=== PATIENT | female | born 1980 | race Caucasian/White ===

== ENCOUNTER → 2016-10-13 | Outpatient (CLI) | payer BC | LOC: LAB 10:30 | PROVIDERS: ATTEND Advanced Practice Midwife | DX: Z36 Encounter for antenatal screening of mother (principal) | CPT/HCPCS: 36415; 82105; 87086; 87088; 87186 ==

== ENCOUNTER → 2017-01-05 | Outpatient (CLI) | payer BC | LOC: LAB 16:22 | PROVIDERS: ATTEND Obstetrics & Gynecology | DX: Z11.59 Encounter for screening for other viral diseases (principal); Z11.4 Encounter for screening for human immunodeficiency virus [HIV] | CPT/HCPCS: 36415; 86592 ==

== ENCOUNTER 2017-01-29 06:32 | Emergency (ER) | payer BC ==
[2017-01-29] MEDS ORDERED: NORMAL SALINE 1000 ML 1,000 ML IV ONE (06:57)
--- NOTE | 2017-01-29 06:59 | ER Document Report ---
ED General - General Chief Complaint: Shortness Of Breath Stated Complaint: SHORTNESS OF BREATH Mode of Arrival: Ambulatory Information source: Patient Notes: 36-year-old female who is 32 weeks presents with complaints of shortness of breath. Patient notes shortness of breath started overnight, worsened with lying flat. Patient notes when she sits up shortness of breath improves but she still feels she cannot take a deep breath. No previous similar episodes Patient is on daily aspirin for history of preeclampsia TRAVEL OUTSIDE OF THE [place] IN LAST 30 DAYS: No - HPI Onset: Just prior to arrival Onset/Duration: Sudden Quality of pain: Sharp Severity: Mild Pain Level: 1 Associated symptoms: Chest pain, Shortness of breath Exacerbated by: Supine Relieved by: Sitting, Standing Similar symptoms previously: No Recently seen / treated by doctor: No - Related Data Allergies/Adverse Reactions: hydrochlorothiazide [Hydrochlorothiazide] Allergy (Severe, Verified 05/03/15 09: 31) CROSS REACTION TO SULFA Sulfa (Sulfonamide Antibiotics) Allergy (Severe, Verified 05/03/15 09:31) PROJECTILE VOMITING Home Medications: Current Home Medications Aspirin [Ecotrin] 81 mg PO DAILY 01/29/17 [History] Glyburide [Diabeta 2.5 mg Tablet] 2.5 mg PO DAILY 01/29/17 [History] Metformin HCl [Glucophage] 500 mg PO BID 01/29/17 [History] Past Medical History - Social History Smoking Status: Never Smoker Cigarette use (# per day): No Chew tobacco use (# tins/day): No Smoking Education Provided: No Family History: Reviewed & Not Pertinent Renal/ Medical History: Denies: Hx Ovarian Cysts, Hx Peritoneal Dialysis, Hx Pelvic Inflammatory Disease Malignancy Medical History: Denies: Hx Breast Cancer, Hx Cervical Cancer, Hx Ovarian Cancer GI Medical History: Reports: Hx Gastroesophageal Reflux Disease - rolaids . Denies: Hx Hiatal Hernia, Hx Ulcer Infectious Medical History: Denies: Hx HIV Review of Systems - Review of Systems Notes: REVIEW OF SYSTEMS: CONSTITUTIONAL : Denies fever, chills, or sweats. Denies recent illness. EENT: Denies eye, ear, throat, or mouth pain or symptoms. Denies nasal or sinus congestion or discharge. Denies throat, tongue, or mouth swelling or difficulty swallowing. CARDIOVASCULAR: Admits to chest pain RESPIRATORY: Admits shortness of breath GASTROINTESTINAL: Denies abdominal pain or distention. Denies nausea, vomiting , or diarrhea. Denies blood in vomitus, stools, or per rectum. Denies black, tarry stools. Denies constipation. GENITOURINARY: Denies difficulty urinating, painful urination, burning, frequency, blood in urine, or discharge. FEMALE GENITOURINARY: Denies vaginal bleeding, heavy or abnormal periods, irregular periods. Denies vaginal discharge or odor. MUSCULOSKELETAL: Denies back or neck pain or stiffness. Denies joint pain or swelling. SKIN: Denies rash, lesions or sores. HEMATOLOGIC : Denies easy bruising or bleeding. LYMPHATIC: Denies swollen, enlarged glands. NEUROLOGICAL: Denies confusion or altered mental status. Denies passing out or loss of consciousness. Denies dizziness or lightheadedness. Denies headache. Denies weakness or paralysis or loss of use of either side. Denies problems with gait or speech. Denies sensory loss, numbness, or tingling. Denies seizures. PSYCHIATRIC: Denies anxiety or stress. Denies depression, suicidal ideation, or homicidal ideation. ALL OTHER SYSTEMS REVIEWED AND NEGATIVE. Dictation was performed using [employer] voice recognition software PHYSICAL EXAMINATION: GENERAL: Well-appearing, well-nourished and in no acute distress. HEAD: Atraumatic, normocephalic. EYES: Pupils equal round and reactive to light, extraocular movements intact, conjunctiva are normal. ENT: Nares patent, oropharynx clear without exudates. Moist mucous membranes. NECK: Normal range of motion, supple without lymphadenopathy LUNGS: Breath sounds clear to auscultation bilaterally and equal. No wheezes rales or rhonchi. HEART: Regular rate and rhythm without murmurs ABDOMEN: Soft, gravid abdomen Female : deferred Musculoskeletal: Normal range of motion, no pitting or edema. No cyanosis. NEUROLOGICAL: Cranial nerves grossly intact. Normal speech, normal gait. Normal sensory, motor exams PSYCH: Normal mood, normal affect. SKIN: Warm, Dry, normal turgor, no rashes or lesions noted. Physical Exam - Vital signs Vitals: Temp Pulse Resp BP Pulse Ox 97.5 F 95 17 128/81 H 98 01/29/17 06:36 01/29/17 06:36 01/29/17 06:36 01/29/17 06:36 01/29/17 06:36 Course - Re-evaluation Re-evalutation: 01/29/17 06:59 Patient will be sent for CT of her chest to rule out a pulmonary emboli otherwise she looks well vital signs are stable patient is in no distress no signs of preeclampsia seen at this time 01/29/17 09:22 Cta non diagnostic for pe, no effusion noted. pt will be sent for VQ scan 01/29/17 10:07 VQ scan was negative, I do not start any life-threatening issues, patient was given fluids and is otherwise stable for discharge I believe her shortness breath may be secondary to the After performing a Medical Screening Examination, I estimate there is LOW risk for ACUTE CORONARY SYNDROME, RESPIRATORY FAILURE, SEPSIS OR MENINGITIS, thus I consider the discharge disposition reasonable. I have reevaluated this patient multiple times and no significant life threatening changes are noted. The patient and I have discussed the diagnosis and risks, and we agree with discharging home with close follow-up. We also discussed returning to the Emergency Department immediately if new or worsening symptoms occur. We have discussed the symptoms which are most concerning (e.g., changing or worsening pain, trouble swallowing or breathing, neck stiffness, fever) that necessitate immediate return. - Vital Signs Vital signs: Temp Pulse Resp BP Pulse Ox 97.6 F 85 16 128/87 H 97 01/29/17 09:46 01/29/17 09:46 01/29/17 09:46 01/29/17 09:46 01/29/17 09:46 - Laboratory Result Diagrams: 01/29/17 07:05 01/29/17 07:05 Laboratory results interpreted by me: 01/29/17 01/29/17 07:05 07:05 RBC 3.57 L Hgb 11.4 L Hct 32.8 L Total Protein 6.0 L - Diagnostic Test Radiology reviewed: Image reviewed, Reports reviewed - No acute abnormality Discharge - Discharge Clinical Impression: Shortness of breath Qualifiers: Weeks of gestation: 32 weeks Qualified Code(s): Z3A.32 - 32 weeks gestation of Condition: Stable Disposition: HOME, SELF-CARE Instructions: Dyspnea, Nonspecific ([facility]) Additional Instructions: Follow up with your physician tomorrow for further care or return to the ED IMMEDIATELY if symptoms worsen or new concerns occur. If you cannot afford to follow up with your primary care physician a list of low cost clinics have been provided at the end of your discharge papers as well.
[2017-01-29 07:22] LABS: ABSOLUTE EOSINOPHILS # (AUTO) 0.1 10^3/uL (0.0-0.6); ABSOLUTE LYMPHOCYTES (AUTO) 1.3 10^3/uL (0.5-4.7); ABSOLUTE MONOCYTES (AUTO) 0.5 10^3/uL (0.1-1.4); ABSOLUTE NEUT (AUTO) 6.3 10^3/uL (1.7-8.2); BASOPHILS % (AUTO) 0.4 % (0-2); EOSINOPHILS % (AUTO) 1.2 % (0-6); HEMATOCRIT 32.8 % (36.0-47.0); HEMOGLOBIN 11.4 g/dL (12.0-15.5); HGB HCT DIFFERENCE 1.4; MEAN CORPUSCULAR HEMOGLOBIN 31.8 pg (27.0-33.4); MEAN CORPUSCULAR HGB CONC 34.6 g/dL (32.0-36.0); MEAN CORPUSCULAR VOLUME 92 fl (80-97); RED BLOOD COUNT 3.57 10^6/uL (3.72-5.28); RED CELL DISTRIBUTION WIDTH 13.2 % (11.5-14.0); SEGMENTED NEUTROPHILS % (AUTO) 76.4 % (42-78); WHITE BLOOD COUNT 8.3 10^3/uL (4.0-10.5)
[2017-01-29 07:41] LABS: ALANINE AMINOTRANSFERASE 40 U/L (9-52); ALBUMIN 3.6 g/dL (3.5-5.0); ALKALINE PHOSPHATASE 85 U/L (38-126); ANION GAP 10 (5-19); ASPARTATE AMINO TRANSFERASE 28 U/L (14-36); BILIRUBIN,DIRECT 0.1 mg/dL (0.0-0.4); BILIRUBIN,TOTAL 0.2 mg/dL (0.2-1.3); BLOOD UREA NITROGEN 14 mg/dL (7-20); CALCIUM 9.6 mg/dL (8.4-10.2); CARBON DIOXIDE 23 mmol/L (22-30); CHLORIDE 107 mmol/L (98-107); CREATININE RESULT 0.61 mg/dL (0.52-1.25); GLUCOSE 106 mg/dL (75-110); POTASSIUM 4.2 mmol/L (3.6-5.0); SODIUM 139.8 mmol/L (137-145)
[2017-01-29 08:54] LABS: APPEARANCE,URINE CLEAR; BILIRUBIN,URINE NEGATIVE (NEGATIVE); GLUCOSE, URINE NEGATIVE (NEGATIVE); KETONES,URINE NEGATIVE (NEGATIVE); LEUKOCYTE ESTERASE,URINE NEGATIVE (NEGATIVE); NITRITE,URINE NEGATIVE (NEGATIVE); PROTEIN,URINE NEGATIVE (NEGATIVE); URINE SPECIFIC GRAVITY 1.008; UROBILINOGEN,URINE NEGATIVE mg/dL (<2.0)
[2017-01-29 09:47] VITALS: BP 128/87
--- NOTE | 2017-01-29 21:57 | EKG REPORT ---
SEVERITY:- ABNORMAL ECG - SINUS RHYTHM LEFT VENTRICULAR HYPERTROPHY : Confirmed by: Joanna Ware MD 29-Jan-2017 21:55:58
== END 2017-01-29 10:16 | disposition home or self-care (01) ==
LOC: ER 06:32
DX: O26.93 Pregnancy related conditions, unspecified, third trimester (principal); R06.02 Shortness of breath; Z3A.32 32 weeks gestation of pregnancy; Z88.2 Allergy status to sulfonamides; Z79.82 Long term (current) use of aspirin
CPT/HCPCS: 93005; 99285; 96360; 36415; 85025; 80053; 81001; 78580; 71275; 93010; A9540; J7030; Q9969

== ENCOUNTER → 2017-02-18 | Outpatient (CLI) | payer BC ==
[2017-02-18 10:00] LABS: HEMATOCRIT 34.9 % (36.0-47.0); HEMOGLOBIN 11.6 g/dL (12.0-15.5); HGB HCT DIFFERENCE -0.1; MEAN CORPUSCULAR HEMOGLOBIN 30.9 pg (27.0-33.4); MEAN CORPUSCULAR HGB CONC 33.3 g/dL (32.0-36.0); MEAN CORPUSCULAR VOLUME 93 fl (80-97); RED BLOOD COUNT 3.77 10^6/uL (3.72-5.28); RED CELL DISTRIBUTION WIDTH 13.5 % (11.5-14.0); WHITE BLOOD COUNT 7.5 10^3/uL (4.0-10.5)
[2017-02-18 10:03] LABS: URINE PROTEIN 15.5 mg/dL (<12)
[2017-02-18 10:28] LABS: ALANINE AMINOTRANSFERASE 28 U/L (9-52); ALBUMIN 3.5 g/dL (3.5-5.0); ALKALINE PHOSPHATASE 90 U/L (38-126); ANION GAP 11 (5-19); ASPARTATE AMINO TRANSFERASE 19 U/L (14-36); BILIRUBIN,DIRECT 0.2 mg/dL (0.0-0.4); BILIRUBIN,TOTAL 0.3 mg/dL (0.2-1.3); BLOOD UREA NITROGEN 11 mg/dL (7-20); CALCIUM 9.6 mg/dL (8.4-10.2); CARBON DIOXIDE 22 mmol/L (22-30); CHLORIDE 105 mmol/L (98-107); GLUCOSE 91 mg/dL (75-110); LDH 421 U/L (313-618); POTASSIUM 4.5 mmol/L (3.6-5.0); SODIUM 138.3 mmol/L (137-145); TOTAL PROTEIN 5.9 g/dL (6.3-8.2); URIC ACID 5.9 mg/dL (2.5-7.0)
== END ==
LOC: LAB 09:33
PROVIDERS: ATTEND Midwife
DX: O13.9 Gestational [pregnancy-induced] hypertension without significant proteinuria, unspecified trimester (principal)
CPT/HCPCS: 36415; 80053; 83615; 84156; 84550; 85027

== ENCOUNTER → 2017-03-01 | Outpatient (CLI) | payer BC ==
[2017-03-01 09:37] LABS: HEMOGLOBIN 11.6 g/dL (12.0-15.5); HGB HCT DIFFERENCE -0.2; MEAN CORPUSCULAR HEMOGLOBIN 30.4 pg (27.0-33.4); MEAN CORPUSCULAR VOLUME 92 fl (80-97); RED CELL DISTRIBUTION WIDTH 13.1 % (11.5-14.0)
[2017-03-01 09:45] LABS: ASPARTATE AMINO TRANSFERASE 18 U/L (14-36); CREATININE RESULT 0.67 mg/dL (0.52-1.25); LDH 464 U/L (313-618); URIC ACID 6.6 mg/dL (2.5-7.0)
== END ==
LOC: LAB 09:15
PROVIDERS: ATTEND Registered Nurse Women's Health Care, Ambulatory
DX: O14.90 Unspecified pre-eclampsia, unspecified trimester (principal)
CPT/HCPCS: 36415; 82565; 83615; 84450; 84550; 85027

== ENCOUNTER 2017-03-10 05:24 | Inpatient (IN) | payer BC ==
[2017-03-09 13:01] LABS: ABSOLUTE EOSINOPHILS # (AUTO) 0.1 10^3/uL (0.0-0.6); ABSOLUTE LYMPHOCYTES (AUTO) 1.5 10^3/uL (0.5-4.7); ABSOLUTE MONOCYTES (AUTO) 0.5 10^3/uL (0.1-1.4); ABSOLUTE NEUT (AUTO) 5.5 10^3/uL (1.7-8.2); BASOPHILS % (AUTO) 0.4 % (0-2); EOSINOPHILS % (AUTO) 1.1 % (0-6); HEMATOCRIT 36.9 % (36.0-47.0); HEMOGLOBIN 12.4 g/dL (12.0-15.5); HGB HCT DIFFERENCE 0.3; LYMPHOCYTES % (AUTO) 19.5 % (13-45); MEAN CORPUSCULAR HGB CONC 33.6 g/dL (32.0-36.0); MEAN CORPUSCULAR VOLUME 92 fl (80-97); MONOCYTES % (AUTO) 6.1 % (3-13); RED CELL DISTRIBUTION WIDTH 13.4 % (11.5-14.0); SEGMENTED NEUTROPHILS % (AUTO) 72.9 % (42-78); WHITE BLOOD COUNT 7.6 10^3/uL (4.0-10.5)
[2017-03-09 13:08] LABS: PROTHROMBIN TIME 12.2 SEC (11.4-15.4)
[2017-03-09 13:09] LABS: PARTIAL THROMBOPLASTIN TIME 28.8 SEC (23.5-35.8)
[2017-03-09 13:24] LABS: APPEARANCE,URINE CLEAR; BILIRUBIN,URINE NEGATIVE (NEGATIVE); GLUCOSE, URINE NEGATIVE (NEGATIVE); KETONES,URINE NEGATIVE (NEGATIVE); LEUKOCYTE ESTERASE,URINE NEGATIVE (NEGATIVE); NITRITE,URINE NEGATIVE (NEGATIVE); PROTEIN,URINE NEGATIVE (NEGATIVE); URINE SPECIFIC GRAVITY 1.004; UROBILINOGEN,URINE NEGATIVE mg/dL (<2.0)
[2017-03-09 13:47] LABS: URINE BARBITURATES SCREEN NEGATIVE; URINE METHADONE SCREEN NEGATIVE; URINE OPIATES LOW NEGATIVE; URINE PHENCYCLIDINE SCREEN NEGATIVE
[~2017-03-10 05:24] MED LIST: CEFAZOLIN 1 GM/D5W RTU 1 GM/50 ML RTUPB IV PRN; LIDOCAINE 0.5% INJ-PF (5 MG/ML) 50 ML SDV SUBCUT PRN; RINGERS SOLUTION,LACTATED 2,000 ML IV PRN
[2017-03-10] MEDS: LACTATED RINGERS 1000 ML IV PRN ×2 (06:33→07:11)
[2017-03-10] MEDS ORDERED: ONDANSETRON HCL INJ/PF 4 MG/2 ML SDV IV PRN (07:36)
[2017-03-10] MEDS ORDERED: DIPHENHYDRAMINE HCL 50 MG/ML VIAL IV PRN (07:36)
[2017-03-10] MEDS ORDERED: PROMETHAZINE HCL INJ 25 MG/1 ML VIAL IV PRN ×3 (07:36→11:38)
[2017-03-10] MEDS ORDERED: MEPERIDINE HCL/PF INJ 25 MG/1 ML DISP.SYRIN IV PRN (07:36)
[2017-03-10] MEDS ORDERED: FENTANYL CITRATE INJ/PF 100 MCG/2 ML AMPUL IV PRN ×3 (07:36)
[2017-03-10] MEDS ORDERED: MIDAZOLAM 2 MG/2 ML INJ ONE (08:00)
[2017-03-10] MEDS ORDERED: FENTANYL CITRATE INJ/PF 100 MCG/2 ML AMPUL ONE (08:00)
[2017-03-10] MEDS ORDERED: OXYTOCIN 10 UNIT/ML VIAL ONE (08:00)
[2017-03-10] MEDS ORDERED: PROPOFOL INJ 200 MG/20 ML VIAL IV ONE (08:01)
[2017-03-10] MEDS ORDERED: EPHEDRINE SULFATE INJ 50 MG/1 ML AMPULE ONE (08:01)
[2017-03-10] MEDS ORDERED: ACETAMINOPHEN 100 ML IV ONE (08:01)
[2017-03-10] MEDS ORDERED: CEFAZOLIN INJ 1 GM VIAL ONE (08:27)
[2017-03-10] MEDS ORDERED: ACETAMINOPHEN 325 MG TABLET PO PRN ×2 (11:27→11:38)
[2017-03-10] MEDS ORDERED: OXYTOCIN/NORMAL SALINE 20 UNIT/1,000 ML RTUINJ INJ PRN (11:27)
[2017-03-10] MEDS ORDERED: SIMETHICONE 80 MG TAB.CHEW PO PRN ×2 (11:27→11:38)
[2017-03-10] MEDS ORDERED: PROMETHAZINE HCL INJ 25 MG/1 ML VIAL IM PRN (11:27)
[2017-03-10] MEDS ORDERED: DIPH/PERTUSS(ACELL)/TETANUS VAC/PF 0.5 ML SYR (>=10YO) IM PRN ×2 (11:27→11:38)
[2017-03-10] MEDS ORDERED: MEASLES,MUMPS&RUBELLA VACC/PF 0.5 ML VIAL SUBCUT PRN ×2 (11:27→11:38)
[2017-03-10] MEDS ORDERED: OXYCODONE-ACETAMINOPHEN 5-325 MG TABLET PO PRN ×2 (11:38)
[2017-03-10] MEDS ORDERED: OXYTOCIN/NORMAL SALINE 1,000 ML IV PRN (11:38)
[2017-03-10] MEDS ORDERED: PHENYLEPHRINE HCL INJ/PF 10 MG/1 ML SDV ONE (11:40)
[2017-03-10] MEDS ORDERED: ONDANSETRON HCL INJ/PF 4 MG/2 ML SDV ONE (11:40)
[2017-03-10] MEDS ORDERED: METOCLOPRAMIDE HCL INJ/PF 10 MG/2 ML SDV ONE (11:40)
[2017-03-10] MEDS ORDERED: KETOROLAC TROMETHAMINE 60 MG/2 ML SDV ONE (11:40)
[2017-03-10] MEDS ORDERED: DEXAMETHASONE SOD PHOSPHATE INJ 4 MG/1 ML VIAL ONE (11:40)
[2017-03-10] MEDS ORDERED: (PENDING PHARMACY ID) (Ranitidine Hcl [Zantac 150 Mg Tablet] 1 TAB) PO PRN (12:05)
[2017-03-10] MEDS: HYDROMORPHONE HCL INJ/PF 2 MG/ML AMPULE IV PRN ×2 (12:22→15:17)
[2017-03-10] MEDS: IBUPROFEN 800 MG TABLET PO SCH ×3 (12:36→23:04)
[2017-03-10] MEDS ORDERED: DOCUSATE SODIUM 100 MG CAPSULE PO SCH (18:00)
[2017-03-10] MEDS: DOCUSATE SODIUM 100 MG CAPSULE PO SCH (18:06)
[2017-03-10] MEDS: FAMOTIDINE 20 MG TABLET PO SCH (18:07)
[2017-03-10] MEDS: OXYCODONE-ACETAMINOPHEN 5-325 MG TABLET PO PRN (20:30)
[2017-03-11] MEDS: OXYCODONE-ACETAMINOPHEN 5-325 MG TABLET PO PRN ×4 (02:12→21:41)
[2017-03-11 06:00] LABS: HEMATOCRIT 31.5 % (36.0-47.0); HEMOGLOBIN 10.6 g/dL (12.0-15.5); HGB HCT DIFFERENCE 0.3; MEAN CORPUSCULAR HEMOGLOBIN 31.2 pg (27.0-33.4); MEAN CORPUSCULAR HGB CONC 33.8 g/dL (32.0-36.0); MEAN CORPUSCULAR VOLUME 92 fl (80-97); RED BLOOD COUNT 3.41 10^6/uL (3.72-5.28); RED CELL DISTRIBUTION WIDTH 13.6 % (11.5-14.0); WHITE BLOOD COUNT 12.4 10^3/uL (4.0-10.5)
[2017-03-11] MEDS: IBUPROFEN 800 MG TABLET PO SCH ×3 (06:03→18:37)
[2017-03-11] MEDS: DOCUSATE SODIUM 100 MG CAPSULE PO SCH ×2 (09:29→18:37)
[2017-03-11] MEDS: PRENATAL VITAMIN W-O CA NO5/FE FUMARATE/FA CAPSULE PO SCH ×2 (09:29→11:15)
[2017-03-11] MEDS ORDERED: PRENATAL VITAMIN W-O CA NO5/FE FUMARATE/FA CAPSULE PO SCH (10:00)
[2017-03-11] MEDS ORDERED: [UNRECOGNIZED DRUG - REMARK] PO SCH (10:00)
--- NOTE | 2017-03-11 12:22 | PDOC PROGRESS REPORT ---
Subjective-OB Subjective: Post Delivery Day:1 36 year old s/p repeat delivery and BTL ppd 1. , ambulating, voiding and passing gas without difficulty. Denies any needs at this time Physical Exam (OB) Vital Signs: Temp Pulse Resp BP Pulse Ox 97.9 F 85 15 131/80 H 100 03/11/17 08:44 03/11/17 08:44 03/11/17 08:44 03/11/17 08:44 03/11/17 08:44 Intake & Output 03/10/17 03/11/17 03/12/17 06:59 06:59 06:59 Intake Total 920 Output Total 3500 Balance -2580 Weight 132.5 kg - General General Appearance: Appears well In distress: None - PIH/Pre-Eclampsia DTR's: 1 + Clonus: Negative Headache: Absent Epigastric Pain: No Visual Changes: No - Dressing Removed: Yes - bruised area of skin ~5cm in diameter below incision Incision: Dressing, Well Approximated Closure Type: opsite - scant amount of dried blood present - Bilateral Tubal Ligation Site: Dressing - opsite - Lochia Lochia Amount: Scant < 10 ml Lochia Color: Rubra/Red - Abdomen Description: Soft, Round Hernia Present: No Fundal Description: Firm, Midline Fundal Height: u/u - u/2 - Respiratory Respiratory Status: No respiratory distress - Genitourinary Female External exam: Bruising - as noted - Extremities Upper extremity: Normal inspection Lower extremities: Normal inspection - Psychological Associated symptoms: Normal affect, Normal mood Objective-Diagnostic Laboratory: 03/11/17 05:42 03/11/17 05:42 WBC 12.4 H RBC 3.41 L Hgb 10.6 L Hct 31.5 L MCV 92 MCH 31.2 MCHC 33.8 RDW 13.6 Plt Count 172 Assessment and Plan(PN) - Assessment and Plan (1) Status post repeat low transverse section Is this a current diagnosis for this admission?: YesPlan: continue stay, ambulation (2) Tubal ligation status Is this a current diagnosis for this admission?: YesPlan: continue stay (3) Anemia Qualifiers: Other causes of anemia: other cause, not classified Is this a current diagnosis for this admission?: YesPlan: iron supplementation - Time Spent with Patient Time with patient: 15-25 minutes Medications reviewed and adjusted accordingly: Yes - Disposition Anticipated Discharge: Home Within: within 24 hours
[2017-03-11] MEDS: FAMOTIDINE 20 MG TABLET PO SCH (18:37)
[2017-03-12] MEDS: IBUPROFEN 800 MG TABLET PO SCH ×3 (00:57→11:50)
[2017-03-12] MEDS: DOCUSATE SODIUM 100 MG CAPSULE PO SCH (09:03)
[2017-03-12] MEDS: PRENATAL VITAMIN W-O CA NO5/FE FUMARATE/FA CAPSULE PO SCH ×2 (09:03→09:21)
--- NOTE | 2017-03-12 09:56 | PDOC DISCHARGE SUMMARY ---
Final Diagnosis Discharge Date: 03/12/17 - Final Diagnosis (1) GDM, class A2 Is this a current diagnosis for this admission?: Yes (2) Anemia Is this a current diagnosis for this admission?: Yes (3) Status post repeat low transverse section Is this a current diagnosis for this admission?: Yes (4) Tubal ligation status Is this a current diagnosis for this admission?: Yes Discharge Data - Discharge Medication Home Medications: Pnv No.122/Iron/Folic Acid [ Multi Tablet] 1 tab PO DAILY 03/09/17 Ranitidine HCl [Zantac 150 mg Tablet] 1 tab PO QPM PRN 03/09/17 Docusate Sodium [Colace 100 mg Capsule] 100 mg PO BID #60 capsule 03/12/17 Ibuprofen [Motrin 800 mg Tablet] 800 mg PO Q6 #60 tablet 03/12/17 Oxycodone HCl/Acetaminophen [Percocet 5-325 mg Tablet] 1 tab PO Q4HP PRN #30 tablet 03/12/17 Pnv W-O Ca No5/Fe Fumarate/FA [-U Multiple Vitamin Capsule] 1 cap PO DAILY #0 capsule 03/12/17 Gestational Age: 39 Reason(s) for Admission: Ceasarean Section-Repeat, Tubal Ligation Procedures: NST Intrapartum Procedure(s): : Low Cervical, Transverse, Tubal Ligation - [place] Data Baby 1 Male at 1 minute: 8 at 5 minutes: 8 Weight: 3685 kg Home with Mother: Yes Complications: No - Diagnosis Test Laboratory: Temp Pulse Resp BP Pulse Ox 97.8 F 91 17 135/87 H 100 03/12/17 07:37 03/12/17 08:35 03/12/17 07:37 03/12/17 08:35 03/12/17 07:37 03/09/17 03/09/17 03/11/17 11:55 12:05 05:42 RBC 4.00 3.41 L Hgb 12.4 10.6 L Hct 36.9 31.5 L Urine Opiates Screen NEGATIVE - Discharge information/Instructions Discharge Activity: Balance Activity w/Rest, No Driving, No Lifting Over 10 Pounds, Pelvic Rest, No tub bath Discharge Diet: Regular Disposition: HOME, SELF-CARE Follow up with: [facility] in: 1, Weeks
[2017-03-12 11:46] VITALS: BP 136/98
[2017-03-12] MEDS: OXYCODONE-ACETAMINOPHEN 5-325 MG TABLET PO PRN (11:49)
--- NOTE | 2017-04-27 11:01 | OPERATIVE REPORT E ---
Operative Report NAME: EMILIA CASH : 1980 AGE: 36Y DATE OF SURGERY: ROOM: 214 PREOPERATIVE DIAGNOSES: 1. A 37-week intrauterine . 2. History of section x3 for repeat. 3. Preeclampsia. 4. Gestational diabetes. 5. Patient desiring sterilization. POSTOPERATIVE DIAGNOSES: 1. A 37-week intrauterine . 2. History of section x3 for repeat. 3. Preeclampsia. 4. Gestational diabetes. 5. Patient desiring sterilization. OPERATION: 1. Repeat low transverse section. 2. Bilateral tubal ligation using Filshie clips. SURGEON: Lauri Gordon D.O. TRAIN STARTER: None. ANESTHESIA: Spinal. COMPLICATIONS: None. PATHOLOGY: Placenta. ESTIMATED BLOOD LOSS: 600 mL. FINDINGS: 1. Viable male infant at 8:52 A.M. on 02/28/2017, Apgars 8 at 1, 9 at 5, weight 8 pounds 2 ounces. 2. Normal-appearing bilateral fallopian tubes and ovaries. 3. Extremely thin lower uterine segment, almost [id number]. PROCEDURE: The patient was taken to the operating room where her spinal anesthesia was administered. Once this was done she was placed in the dorsal supine position with a leftward tilt upon the operating room table. She was then prepped and draped in the normal sterile fashion. A scalpel was then used to make a Pfannenstiel skin incision. The skin incision was carried down through the subcutaneous tissue to the layer of the fascia. The fascia was incised midline. The fascial incision was then extended bilaterally using the Bovie cautery. The superior fascial edge was grasped with Jennie clamps, elevated, and the rectus muscles dissected off sharply and bluntly. Attention was then turned to the interior fascia edge, which was grasped with Jennie clamps, elevated, and the rectus muscles dissected off sharply and bluntly. Rectus muscles were then in the midline. Peritoneum was identified and entered bluntly with the surgeon's hand. A bladder blade was inserted. It was at this time it was noted that the patient had incredibly thin lower uterine segment, almost [id number]. The low transverse hysterotomy incision was then made above this window, and the infant was delivered through the incision in the cephalic position without difficulty and atraumatically. The nose and mouth were suctioned. The cord was clamped and cut, and the infant was handed off to the waiting nurses. Cord blood was obtained. The placenta was manually removed from the uterus. The uterus was then exteriorized and cleared off all clots and debris. The hysterotomy incision was reapproximated using 2 layers of 1-0 Vicryl in a running locking fashion. Following closure of the second layer, excellent hemostasis was noted. Several additional [id number] sutures of 1-0 Vicryl were required to close the small fenestrations that were in the lower uterine segment. Once this was done the uterus was then returned to the abdomen. Again, the hysterotomy incisions were reinspected, and the lower uterine segment was also reinspected and had excellent hemostasis and to be intact. The rectus muscles were then reapproximated using 1-0 Vicryl interrupted sutures. The fascia was then closed using 1-0 Vicryl in a running nonlocking fashion. The subcutaneous space was then made hemostatic using Bovie cautery. The skin was then closed with absorbable dick covered with an OpSite and then with a pressure dressing. At this point in time the procedure was terminated. All sponge, lap, and needle counts were correct x2. Patient tolerated the procedure well. Patient was taken to the recovery room in stable condition. DICTATING PHYSICIAN: Lauri Gordon DO [id number] PHY#: [id number] ID: [id number] JOB#: [id number] ACCT: [id number] cc:Lauri Gordon D.O. >
--- NOTE | 2017-04-27 13:26 | DISCHARGE SUMMARY E ---
Discharge Summary NAME: EMILIA CASH : 1980 AGE: 36Y ADMITTED: 03/10/2017 DISCHARGED: 03/12/2017 The patient had anemia documented in her discharge summary. Her initial hemoglobin was 12.4 and fell to 10.6 from 03/09 to 03/11/2017. This is a result of anemia due to postop blood loss. DICTATING PHYSICIAN: Lauri Gordon DO [id number] PHY#: [id number] ID: [id number] JOB#: [id number] ACCT: [id number] cc:RAYSHAWN LARSEN M.D. Lauri Gordon D.O. >
--- NOTE | 2017-05-13 09:16 | PDOC DELIVERY SUMMARY ---
Delivery Summary - Maternal Hx : VIIII Hx # Term Pregnancies: 3 Hx Total # of Abortions (Sponateous & Elective): 5 RAMON: 03/27/17 Gestational Age: 39 Ruptured Membranes: AROM Fluids: Clear - Delivery Presentation: Vertex Heart Rate Monitoring: Done Pre-Operatively Support Person Present: Yes Location: LD : Scheduled Placenta: Within Normal Limits Delivery of Placenta Date: 03/10/17 Delivery of Placenta Time: 08:53 - Medications Type of Anesthesia:: Spinal - Assess and Care Baby 1 Male Delivery of Date: 03/10/17 Delivery of Time: 08:52 at 1 minute: 8 at 5 minutes: 8 Preprinted Number On Band: [id number] Skin to Skin: No To Nursery At: 09:03 Mode of Transport: Bassinet - Delivery Personnel Processing Mgr: JENNIFER HEDRICK Nursery RN: PAIGE BROOKS RN: EVERETT PARK MD: DHAVAL BUI
== END 2017-03-12 13:26 | disposition home or self-care (01) | DRG 765 ==
LOC: 2S 05:24
PROVIDERS: ADMIT Obstetrics & Gynecology; ATTEND Obstetrics & Gynecology
PROC: 0UL70CZ Occlusion of Bilateral Fallopian Tubes with Extraluminal Device, Open Approach (ICD-10-PCS; 2017-03-10)
PROC: 4A1HXCZ Monitoring of Products of Conception, Cardiac Rate, External Approach (ICD-10-PCS; 2017-03-10)
PROC: 10D00Z1 Extraction of Products of Conception, Low, Open Approach (ICD-10-PCS; principal; 2017-03-10 08:00)
PROC: 3E0234Z Introduction of Serum, Toxoid and Vaccine into Muscle, Percutaneous Approach (ICD-10-PCS; 2017-03-12)
DX: O34.211 Maternal care for low transverse scar from previous cesarean delivery (principal); D62 Acute posthemorrhagic anemia; O24.424 Gestational diabetes mellitus in childbirth, insulin controlled; O99.02 Anemia complicating childbirth; O14.94 Unspecified pre-eclampsia, complicating childbirth; Z88.3 Allergy status to other anti-infective agents; Z30.2 Encounter for sterilization; Z87.891 Personal history of nicotine dependence; Z23 Encounter for immunization; Z3A.39 39 weeks gestation of pregnancy; Z37.0 Single live birth
CPT/HCPCS: 1961; 36415; 59025; 80307; 81001; 82962; 85025; 85027; 85610; 85730; 86850; 86900; 86901; 88307; 90715; 94799; J0131; J0690; J1100; J1170; J1885; J2250; J2370; J2405; J2590; J2704; J2765; J3010; J3490; J7120